=== PATIENT | female | born 1970 | race Caucasian/White ===

== ENCOUNTER 2022-12-25 17:30 | Emergency (ER) | payer BC, SELFPAY ==
[2022-12-25] VITALS (57 sets, daily range): BP systolic 113–143; BP diastolic 46–100; PULSE 48–67; RESP 12–27; TEMP 36.8; O2SAT 95–100
--- NOTE | 2022-12-25 17:30 | RT.EKG_ITS ---
APPROVED REPORT Exam: Resting ECG Reason for Exam: chest pain Patient Location: E HR:65 bpm ECG Measurements Heart Rate 65 AXIS [place] 137 P 37 QRSd 101 QRS 46 QT 408 T 56 QTc 424 Conclusion Sinus rhythm...normal P axis, V-rate 60- 99. Sinus. Normal axis. No STEMI. I have reviewed and interpreted ECG and agree with software generated interpretation.
--- NOTE | 2022-12-25 17:45 | DI.RAD_ITS ---
Exam(s) XR PORTABLE CHEST AP EXAM: XR PORTABLE CHEST AP CLINICAL HISTORY: chest pain. TECHNIQUE: 2D digital imaging was performed. COMPARISON: No exams were available for comparison FINDINGS: Single AP portable view. Heart size is upper normal. The mediastinum is not widened. Lungs are clear. No infiltrates nor obvious pleural effusions. IMPRESSION: No acute pulmonary findings on this single AP portable view of the chest. DATA REPOSITORY: RADIATION DOSE DELIVERED:
[2022-12-25] MEDS: Aspirin 81 MG CHEW (17:50)
[2022-12-25] MEDS: nitroGLYcerin 0.4 MG TAB ×2 (17:50→19:13)
--- NOTE | 2022-12-25 17:57 | W.ED.GENAD ---
Discharge Plan Disposition Patient Disposition: Home Condition: Stable Discharge Details Clinical Impression: Chest pain Primary Care Provider: Natalia Rod ED Provider: Dorene Covington Home Meds and New Rx's Prescriptions: Continued diphenhydramine HCl [Benadryl] 25 mg capsule 25 mg PO QHS PRN (Reason: sleep) trazodone 100 mg tablet 100 mg PO DAILY lorazepam [Ativan] 0.5 mg tablet 0.5 mg PO Q8H PRN Discharge Instructions Instructions: Chest Pain (ED) Additional Instructions: please call primary care provider office first thing in am to schedule further outpatient cardiac evaluation. return sooner for new or worsening symptoms Stand Alone Forms: Work Release Referrals: Natalia Rod NP [Primary Care Provider] - Discharge Data Discharge Date/Time-TO BE ENTERED AT DEPARTURE: 12/25/22 23:13 Medical Decision Making <Dorene Covington NP - Last Filed: 12/26/22 15:07> EKG with no acute ST segment changes. Her history is concerning for ACS. Doubt aortic dissection but chest x-ray is pending. She will be given 324 mg of aspirin to chew and 1 SL nitro. While sitting in department she does report pain now in between her shoulder blades. CTA of the thorax was ordered and showed no evidence of pulmonary embolism or aortic dissection no acute vascular abnormalities. She did have some nonemergent findings that were detailed in the report as should be followed up by her primary care provider. The she does not have symptoms of venous thoracic outlet syndrome with no pain in her right neck and no vascular abnormalities ATs or deficiencies noted. She was held for a 4-hour troponin which was also negative. She did have some relief from the nitroglycerin so a GI cocktail was provided but she states she did not get any significant relief from that. She has remained hemodynamically stable. I did discuss further cardiac evaluation with stress testing and she wishes to pursue that as an outpatient. She was advised to return sooner for new or worsening symptoms. <Smita Dorman DO - Last Filed: 01/02/23 00:31> EKG with no acute ST segment changes. Her history is concerning for ACS. Doubt aortic dissection but chest x-ray is pending. She will be given 324 mg of aspirin to chew and 1 SL nitro. While sitting in department she does report pain now in between her shoulder blades. CTA of the thorax was ordered and showed no evidence of pulmonary embolism or aortic dissection no acute vascular abnormalities. She did have some nonemergent findings that were detailed in the report as should be followed up by her primary care provider. The she does not have symptoms of venous thoracic outlet syndrome with no pain in her right neck and no vascular abnormalities ATs or deficiencies noted. She was held for a 4-hour troponin which was also negative. She did have some relief from the nitroglycerin so a GI cocktail was provided but she states she did not get any significant relief from that. She has remained hemodynamically stable. I did discuss further cardiac evaluation with stress testing and she wishes to pursue that as an outpatient. She was advised to return sooner for new or worsening symptoms. Attending physician note: Patient not seen or examined by me but I was available for consult if needed. Smita Dorman DO HPI <Dorene Covington NP - Last Filed: 12/26/22 15:07> General Mode of arrival: ambulatory. Date/Time Provider Initiated Documentation: 12/25/22 17:38. Limitations to Documentation: no limitations. Information obtained by: patient. HPI Narrative: Onset 30 minutes prior to arrival while at work of substernal chest pain. Initially she thought it was GI but then noted tingling and pain on the left side of her jaw she said then she noticed discomfort on the right side of her jaw as well. 911 was called. On evaluation her symptoms were resolving vital signs stable so she opted to come by private vehicle. On arrival she is still having some mild substernal chest discomfort but the jaw pain has subsided. She denies any cough shortness of breath nausea vomiting diaphoresis denies any similar history. She has no personal cardiac history. She states her mother had a heart attack at 55. Related Data Home Medications Medication Instructions Recorded Confirmed lorazepam 0.5 mg tablet (Ativan) 0.5 mg PO Q8H PRN 10/19/22 12/08/22 trazodone 100 mg tablet 100 mg PO DAILY 10/19/22 12/08/22 diphenhydramine HCl 25 mg capsule 25 mg PO QHS PRN sleep 12/08/22 12/08/22 (Benadryl) Allergies Allergy/AdvReac Type Severity Reaction Status Date / Time Sulfamethizole Allergy Unknown Uncoded 12/07/22 12:37 General Stated Complaint: Chest Pain PRICE: 2 Review of Systems <Dorene Covington NP - Last Filed: 12/26/22 15:07> All systems reviewed & are unremarkable except as noted in HPI and below Constitutional Constitutional: Reports system reviewed and no additional complaints, except as documented Cardiovascular Cardiovascular: Reports chest pain, Denies rapid heart rate, Denies irregular heart rhythm and Denies leg edema Comments: no aggravating or alleviating factors identified. PFSH <Dorene Covington NP - Last Filed: 12/26/22 15:07> All Active Problems (Updated 12/25/22 @ 22:51 by Dorene Covington NP) Chest pain (Acute) SLE (systemic lupus erythematosus) (Chronic ~2014) Dermatomyositis (Chronic ~2014) Generalized anxiety disorder (Chronic) Major depressive disorder, recurrent (Chronic) Ocular migraine (Chronic) Insomnia (Chronic) Medical History (Updated 12/25/22 @ 22:51 by Dorene Covington NP) Multiple myeloma (~2014) S/p autologous stem cell transplant Surgical History (Updated 12/08/22 @ 09:26 by Natalia Rod NP) History of partial hysterectomy (~2012) For uterine fibroids, ovaries remain Hx of autologous stem cell transplant S/P carpal tunnel release Family History Mother , 73 Heart disease Hyperlipidemia Stroke Father , 65 Depression Sister No problems noted. Sister No problems noted. Son No problems noted. Son No problems noted. Daughter No problems noted. Social History Smoking/Tobacco Use Status: Current-Occasional Tobacco Type: cigarettes and e-cigarettes Quit status: has quit before Second Hand Exposure: Yes Smoking risk assessment performed?: Yes Alcohol Intake: current Alcohol Intake frequency: holidays/special occasions only Alcohol type: hard liquor Drug use: Never Substance use type: does not use Household members: spouse and other Details: Father in law Housing: house Communication Needs: Corrective Lenses Do you need help understanding health information?: Never Pets and animals: No Sexually active: Yes Do you think of yourself as: straight/heterosexual Current gender identity: female What is your relationship status?: How often do you talk on the phone with friends or family?: three or more times per week How often do you get together with friends or relatives?: twice per week How often do you attend judaism or jewish services?: 1-3 times per year Do you belong to any clubs or organized social groups?: no Panel score (0-1 are the most socially isolated patients): 2 What type of physical activity do you participate in: weight lifting Duration: 60-90 minutes/day Frequency: 5-6 times per week Lynnette/Confucianist: L[employer]-Day Special lynnette needs: No Helmet use: Yes Helmet use: always 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 Do you feel safe at home: Yes Do you feel safe in your relationship?: Yes Exam <Dorene Covington NP - Last Filed: 12/26/22 15:07> Const General: cooperative, healthy appearing, comfortable and no acute distress Nutritional Appearance: average body habitus Orientation: alert, awake and oriented x3 HENMT Head: normal to inspection and normocephalic Mouth: oral mucosae normal Neck Neck: full ROM and no JVD Chest Chest: normal inspection of the chest Resp Effort & Inspection: normal respiratory effort Auscultation: clear to auscultation bilaterally Cardio Rate: regular rate Rhythm: regular rhythm Heart Sounds: no murmurs GI Inspection: normal to inspection Palpation: soft Skin General skin exam: no rashes or lesions noted (She is pink warm dry and well perfused) Neuro General: patient alert, patient awake and patient oriented x3 Extrem General: normal to inspection Course <Dorene Covington NP - Last Filed: 12/26/22 15:07> Vital Signs Vital signs: Vital Signs Temperature 36.8 C 12/25/22 17:45 Pulse 65 12/25/22 17:45 Respiratory Rate 18 12/25/22 17:45 Blood Pressure 141/87 H 12/25/22 17:45 Pulse Oximetry 100 12/25/22 17:45 Temperature 36.8 C 12/25/22 17:45 Temperature Source Oral 12/25/22 17:45 Pulse 65 12/25/22 17:45 Respiratory Rate 18 12/25/22 17:45 Respiratory Effort Normal 12/25/22 17:51 Blood Pressure 141/87 H 12/25/22 17:45 Blood Pressure Position Supine 12/25/22 17:45 Pulse Oximetry 100 12/25/22 17:45 Oxygen Delivery Method Room Air 12/25/22 17:45 Oxygen Flow Rate 0 12/25/22 17:45 Pain Level 5 12/25/22 17:45
[2022-12-25 18:05] LABS: Abs Immature Grans 0.02 10^3/uL (0.0-0.06); Absolute Basophil Count 0.05 10^3/uL (0.0-0.2); Absolute Eosinophil Count 0.12 10^3/uL (0.0-0.7); Absolute Lymphocyte Count 2.33 10^3/uL (1.2-3.4); Absolute Monocyte Count 0.34 10^3/uL (0.1-0.8); Absolute Neutrophil Count 3.36 10^3/uL (1.2-6.7); Basophils % 0.8; Eosinophils % 1.9; HCT 37.3 % (36.0-46.0); HGB 12.3 g/dL (11.2-15.7); Immature Grans % 0.3; Lymphocytes % 37.5; MCH 30.8 pg (27.0-33.0); MCV 94 fL (80-95); MPV 9.3 fL (8.0-11.0); Monocytes % 5.5; Platelet Count 204 10^3/uL (130-400); RBC 3.99 10^6/uL (3.93-5.22); RDW 12.3 % (11.7-14.6); RDW-SD 42.4 fL; WBC 6.22 10^3/uL (4.4-10.8)
[2022-12-25 18:19] LABS: PTT Activated 33.9 sec (21.5-31.9); Prothrombin Time 10.3 sec (9.3-11.0)
[2022-12-25 18:28] LABS: ALT 20 U/L (14-59); AST 10 U/L (15-37); Alkaline Phosphatase 98 U/L (46-116); Anion Gap 9.1 mmol/L (3-11); BUN 14 mg/dL (7-18); Bilirubin, Total 0.3 mg/dL (0.2-1.0); CO2 26.9 mmol/L (21.0-32.0); CREATININE 0.8 mg/dL (0.55-1.02); Chloride 106 mmol/L (98-107); Glucose 94 mg/dL (74-106); Magnesium 1.7 mg/dL (1.8-2.4); NT-proBNP 129 pg/mL (<300); Potassium 3.8 mmol/L (3.5-5.1); Sodium 142 mmol/L (136-145); Total Protein 6.7 g/dL (6.4-8.2); Troponin I < 50 ng/L (<or=60)
--- NOTE | 2022-12-25 18:43 | DI.VRAD_ITS ---
PROCEDURE INFORMATION: Exam: XR Chest Exam date and time: 12/25/2022 5:55 PM Age: 52 years old Clinical indication: Pain; Chest pressure TECHNIQUE: Imaging protocol: Radiologic exam of the chest. Views: 1 view. COMPARISON: No relevant prior studies available. FINDINGS: Lungs: Normal pulmonary expansion. Pulmonary vasculature grossly normal. No gross pulmonary infiltrates or edema pattern. Pleural spaces: No pleural effusion. No pneumothorax. Heart/Mediastinum: Heart size normal. No tracheal/mediastinal shift. Bones/joints: Right-sided C7 cervical rib noted. No acute osseous abnormalities are identified. IMPRESSION: 1. No acute thoracic process. 2. Right-sided C7 cervical rib noted. If there is clinical concern for chronic right-sided thoracic outlet syndrome, nonemergent CT angiography may be helpful. Dictated and Authenticated by: Don Hwang MD. Ordering:MODESTO Catherine MD
--- NOTE | 2022-12-25 19:00 | DI.CT_ITS ---
Exam(s) CT THORAX CTA EXAM: CT THORAX CTA CLINICAL HISTORY: pain between shoulder blades. TECHNIQUE: Imaging Protocol: CT angiography of the chest was performed using pulmonary embolus ada col. Multi planar reconstructions were performed. CONTRAST MATERIAL: Intravenous: Omnipaque 350 Contrast volume: 100 cc COMPARISON: No exams were available for comparison FINDINGS: CHEST: THORACIC AORTA: Thoracic aorta is not enlarged and there is no evidence of aortic dissection. Aortic arch anatomy is conventional. The included uppermost abdominal aorta at the level of the celiac and SMA and renal artery takeoff points is also nonaneurysmal. PULMONARY ARTERIES: There are no intraluminal filling defects to suggest acute pulmonary emboli. LUNGS: There are no infiltrates nor evidence of pulmonary infarction.. No significant infiltrates. N o pneumothorax. No pleural effusions. Mild atelectasis in the posterior basal segment of the right lower lobe. MEDIASTINUM: There is no hilar nor mediastinal adenopathy. CARDIAC: Heart size is upper normal. There is no pericardial effusion.Caliber of the thoracic aorta is within normal limits. No dissection. There is some reflux of contrast into the intrahepatic IVC. However, there is no evidence of shift of the interventricular septum. PARTIALLY VISUALIZED UPPERMOST ABDOMEN: No obvious findings OSSEOUS: Slight loss of height of inferior endplate T6, age indeterminate. No significant osseous le sions.. IMPRESSION: 1. No evidence of acute pulmonary emboli. No evidence of pulmonary infarction.No evidence of aortic dissection nor pericardial effusion. Heart size normal. 2. No confluent infiltrates. No pleural effusions. No intrathoracic adenopathy. RADIATION DOSE DELIVERED: 404.33mGy.cm Total DLP DATA REPOSITORY: All CT scans at this facility are submitted to the National Radiology Data Registry (NRDR) Dose Index Registry (DIR) with the [employer] (A[employer]). RADIATION OPTIMIZATION: All CT scans at this facility use at least one of these dose optimization te chniques: automated exposure control; mA and/or kV adjustment per patient size (includes targeted exa ms where dose is matched to clinical indication); or iterative reconstruction.
[2022-12-25] MEDS: Normal Saline Flush 10 ML SYR IVP (19:43)
[2022-12-25] MEDS: Omnipaque 350 MG/ML 100 ML BTL IJ (19:43)
[2022-12-25] MEDS: Normal Saline - Diluent 50 ML VIAL IJ (19:44)
--- NOTE | 2022-12-25 19:55 | DI.VRAD_ITS ---
PROCEDURE INFORMATION: Exam: CTA Chest With Contrast Exam date and time: 12/25/2022 7:30 PM Age: 52 years old Clinical indication: Sternal or substernal pain and other: Between shoulder blades; Prior surgery; Surgery date: 6+ months; Surgery type: HX of ports placed for CA treatment; Patient HX: Pain between shoulder blades TECHNIQUE: Imaging protocol: Computed tomographic angiography of the chest with contrast. 3D rendering (Not supervised by radiologist): MIP and/or 3D reconstructed images were created by the technologist. Radiation optimization: All CT scans at this facility use at least one of these dose optimization techniques: automated exposure control; mA and/or kV adjustment per patient size (includes targeted exams where dose is matched to clinical indication); or iterative reconstruction. Contrast material: OMNIPAQUE 350; Contrast volume: 100 ml; Contrast route: INTRAVENOUS (IV); COMPARISON: XR PORTABLE CHEST AP 12/25/2022 5:55 PM FINDINGS: Pulmonary arteries: The pulmonary arteries enhance appropriately with no evidence of pulmonary embolism. Aorta: Mild aortic ectasia/tortuosity. No aortic aneurysm or dissection. No mediastinal hematoma. Veins: Circumaortic left renal vein configuration noted. Thyroid: There is a 10 mm peripherally calcified nodule in the left thyroid lobe. No further assessment is required based on current consensus criteria. Lungs: Question mild bilateral bronchial wall thickening suspicious for a mild element of bronchitis or bronchial edema, with no evidence of bronchiectasis or bronchial occlusions. No gross pulmonary infiltrates or edema pattern. Scattered very small ill-defined bilateral upper lobe centrilobular lung nodules are present measuring 1-2 mm in size. These are usually related to bronchiolitis and may be due to atypical infection or subacute hypersensitivity pneumonitis. Other etiologies such as obliterative bronchiolitis, respiratory bronchiolitis interstitial lung disease (RB-ILD), or vasculitis can produce this appearance as well. No pulmonary mass lesions are identified. Pleural spaces: No pleural effusion. No pneumothorax. Mild bilateral apical pleural/parenchymal scarring. Heart: Heart size normal. Minimal coronary artery calcification. No pericardial effusion. Mediastinal space: The esophagus is largely contracted but demonstrates no gross abnormality. Lymph nodes: No supraclavicular or axillary adenopathy. No mediastinal or hilar adenopathy. Intraperitoneal space: Visualized upper abdominal structures are unremarkable. Bones/joints: No acute osseous abnormalities are identified. Right C7 cervical rib noted. With arms overhead positioning this causes minor extrinsic mass effect on the right subclavian artery without associated stenosis or aneurysm/pseudoaneurysm. Venous assessment is limited on this arterial phase exam. Soft tissues: The soft tissues of the chest wall demonstrate no acute abnormality. IMPRESSION: 1. No evidence of pulmonary embolism or aortic dissection. No acute vascular abnormalities. 2. Slight bronchial wall thickening bilaterally with ill-defined centrilobular micronodular pattern in the upper lobes, with primary differential considerations being bronchiolitis from atypical infection or subacute hypersensitivity pneumonitis. Please see discussion above for additional differential considerations. No zackary pulmonary infiltrates. 3. Right C7 cervical rib produces mild deviation of the right subclavian artery without arterial stenosis, dissection, or aneurysm/pseudoaneurysm. If there is clinical suspicion for venous thoracic outlet syndrome, consider nonemergent CT venography with venous phase imaging and arms up/down positioning. 4. Additional nonemergent findings detailed above. Dictated and Authenticated by: Don Hwang MD. Ordering:MODESTO Catherine MD
--- NOTE | 2022-12-25 20:45 | RT.EKG_ITS ---
APPROVED REPORT Exam: Resting ECG Reason for Exam: chest pain Patient Location: E HR:54 bpm ECG Measurements Heart Rate 54 AXIS [place] 164 P 21 QRSd 96 QRS 58 QT 452 T 56 QTc 428 Conclusion Sinus bradycardia...rate< 60. Sinus. Normal axis. No STEMI. I have reviewed and interpreted ECG and agree with software generated interpretation.
[2022-12-25 21:23] LABS: Troponin I < 50 ng/L (<or=60)
[2022-12-25] MEDS: Lidocaine 2% Viscous 15 ML CUP PO (21:43)
--- NOTE | 2022-12-28 07:49 | NUR.NOTE ---
Nursing Note: Accessed pt chart to determine if there is an outstanding EKG order. EKG needs to be read.
--- NOTE | 2023-01-01 08:11 | NUR.NOTE ---
Nursing Note:Accessed chart to determine orders for EKG and to determine whether or not one needs to be cancelled.
== END 2022-12-25 23:13 | disposition home or self-care (01) ==
PROVIDERS: Emergency Provider Nurse Practitioner Acute Care; PCP Nurse Practitioner Family
DX: R07.2 Precordial pain (principal)
CPT/HCPCS: 36415; 71275; 80053; 93005; 99285; 71045; 83735; 83880; 84484; 85025; 85610; 85730; 93010; J3490

== ENCOUNTER 2023-12-12 14:11 | Outpatient (CLI) | payer OTHER, SELFPAY ==
[2023-12-12 14:03] LABS: Hemoglobin A1C 5.5 % (<5.7)
[2023-12-12 14:12] LABS: Calculated LDL 175 mg/dL (<100); Cholesterol 269 mg/dL (<200); HDL Cholesterol 67 mg/dL (40-60); Triglyceride 135 mg/dL (<150)
[2023-12-14 12:32] LABS: TB Interpretation Negative (Negative); TB2 Ag minus Nil 0.02 IU/mL
== END 2023-12-12 14:12 | disposition home or self-care (01) ==
LOC: LBO 14:11
PROVIDERS: PCP Nurse Practitioner Family; Visit Provider Nurse Practitioner Family
DX: C90.00 Multiple myeloma not having achieved remission (principal); M32.9 Systemic lupus erythematosus, unspecified; R07.9 Chest pain, unspecified; F41.8 Other specified anxiety disorders; Z79.899 Other long term (current) drug therapy
CPT/HCPCS: 36415; 80061; 83036; 86480

== ENCOUNTER → 2024-03-12 04:47 | Outpatient (CLI) | payer OTHER, SELFPAY ==
--- NOTE | 2024-03-12 07:15 | DI.MAMMO_ITS ---
Exam(s) MAMMO SCREENING EXAM: MAMMO SCREENING CLINICAL HISTORY: screening,z12.39. TECHNIQUE: Bilateral full field digital CC and MLO mammographic images were obtained with 3D tomosyn thesis and utilizing computer aided detection (CAD). COMPARISON: Prior mammograms were reviewed. FINDINGS: There has been no significant change in the appearance and distribution of the fibroglandular tissue. Small benign-appearing nodule laterally in left breast is unchanged from prior mammograms probably a benign lymph node. There are no new spiculated masses nor malignant appearing microcalcification groups. There is no significant architectural distortion nor skin thickening-retraction. IMPRESSION: No radiographic evidence of malignancy. BI-RADS Category 1 - Negative Breast Density - Category B - Scattered areas of fibroglandular density Breast density Category C or D implies that the patient has dense breast tissue. Dense breast tissue can make it harder to find cancer on a mammogram. Dense breast tissue is also associated with an incr eased risk of breast cancer. This information about the result of the mammogram report was provided to the patient to raise their awareness. Use this report when you speak with the patient about their risks for breast cancer, which includes their family history. At that time, you may recommend additional screening tests (Ultrasoun d or MRI) as these tests may add significant information. A negative radiographic report should not delay biopsy if a dominant or clinically suspicious mass is present. Up to ten percent of cancers are not identified on mammography. A negative report may reinforce clinical impression. Adenosis and dense breasts may obscure an underlying neoplasm. False positive reports average 6 to 10%. Patient will receive a letter notifying them of these results.
== END ==
PROVIDERS: PCP Nurse Practitioner Family; Visit Provider Nurse Practitioner Family
DX: Z12.31 Encounter for screening mammogram for malignant neoplasm of breast (principal)
CPT/HCPCS: 77063; 77067

== ENCOUNTER 2024-03-26 06:18 | Day surgery (SDC) | payer OTHER, SELFPAY ==
[2024-03-26 06:20] VITALS: BP 113/75; PULSE 75; RESP 18; TEMP 36.4; O2SAT 96
--- NOTE | 2024-03-26 06:43 | ANES.PREOP_ITS ---
General Info Date of Service Date Performed: 03/26/24 Height: 5 ft 2 in Weight: 65 kg Body Mass Index (BMI): 26.2 Surgical Procedure: Operation Date: 03/26/24 07:35 Proposed Procedure Side Surgeon p Colonoscopy Sandeep Hanson MD Meds Allergies and Home Medications Allergies Allergy/AdvReac Type Severity Reaction Status Date / Time Sulfa (Sulfonamide Allergy Skin Rash Verified 03/26/24 06:36 Antibiotics) Home Medication Medication Instructions Recorded diphenhydramine HCl 25 mg capsule 25 mg PO QHS PRN sleep 12/08/22 (Benadryl) lorazepam 0.5 mg tablet (Ativan) 0.5 mg PO Q8H PRN panic attacks 02/11/24 #20 tabs trazodone 100 mg tablet 100 mg PO DAILY #90 tabs 02/11/24 bisacodyl 5 mg tablet,delayed 5 mg PO ONCE Colonoscopy Bowel 02/27/24 release Prep #4 tabs polyethylene glycol 3350 17 238 g PO ONCE #238 grams 02/27/24 gram/dose oral powder Current Visit Medications: Current Medications Generic Name Dose Route Start Last Admin Trade Name Freq PRN Reason Stop Dose Admin Ringer's Solution 1,000 mls @ 80 mls/hr 03/26/24 06:00 IV 03/26/24 23:59 INFUSION ADRIANA IV Miscellaneous Supplies 1 each 03/26/24 06:00 Iv Access IV 03/26/24 23:59 DIRECTED ADRIANA Sodium Chloride 0 ml 03/26/24 06:00 Normal Saline Flush 10 Ml Syr IV 03/26/24 23:59 PRN PRN Sodium Chloride 0 ml 03/26/24 06:00 Normal Saline 10 Ml Vial IJ 03/26/24 23:59 DIRECTED PRN Sterile Water 0 ml 03/26/24 06:00 Water,Injection,Sterile 10 Ml Vial IJ 03/26/24 23:59 DIRECTED PRN PFSH Active Problems Active Problems: Problem Status Onset Code Back abscess L02.212 History of multiple myeloma Z85.79 SLE (systemic lupus erythematosus) ~2014 M32.9 Generalized anxiety disorder F41.1 Major depressive disorder, recurrent F33.9 Ocular migraine G43.109 Insomnia G47.00 Medical History Medical History Dermatomyositis (~2014) Multiple myeloma (~2014) S/p autologous stem cell transplant Surgical History Surgical History Hx of autologous stem cell transplant S/P carpal tunnel release History of partial hysterectomy (~2012) For uterine fibroids, ovaries remain Tobacco Smoking/Tobacco Use Status: Current-Occasional Tobacco Type: cigars Passive smoking exposure: Yes Second hand exposure: No Alcohol Alcohol Intake: former Substance Use Substance use: Never Substance use type: does not use Vital Signs and Lab Results Vital Signs Most Recent Vital Signs in EMR: Most Recent Vital Signs Temp Pulse Resp BP Pulse Ox 36.4 C L 75 18 113/75 96 03/26/24 06:20 03/26/24 06:20 03/26/24 06:20 03/26/24 06:20 03/26/24 06:20 Lab Results Blood Type / Crossmatch: No Data to Display Complete Blood Count: No Data to Display Complete Metabolic Panel: No Data to Display Liver Function Panel: No Data to Display Coagulation Panel: No Data to Display Cardiac Panel: No Data to Display Arterial Blood Gas: No Data to Display Venous Blood Gas: No Data to Display Pancreas Panel: No Data to Display Thyroid Panel: No Data to Display Infectious Disease: No Data to Display Blood Cultures: No Data to Display Toxicology Panel: No Data to Display Imaging and Studies Imaging and Studies Study information below may be from another EMR and interpreted by another provider. Please see original notes in EMR for more complete details. EKG Summary: EKG PATIENT NAME: Judith Rivera UNIT #: [id number] ORDERING PROVIDER: Dorene Covington NP PRIMARY CARE PROVIDER: HECTOR NICOLE NP DATE/TIME OF SERVICE: 12/25/222058 : 1970 PERFORMING LOCATION: ER APPROVED REPORT Exam: Resting ECG Reason for Exam: chest pain Patient Location: E HR:54 bpm ECG Measurements Heart Rate 54 AXIS NV 164 P 21 QRSd 96 QRS 58 QT 452 T56 QTc 428 Conclusion Sinus bradycardia...rate< 60. Sinus. Normal axis. No STEMI. I have reviewed and interpreted ECG and agree with software generated interpretation. <Electronically signed by BERYL MCINTOSH DO in [facility]> E-Sign Date: 12/25/22 E-Sign Time: 2326 ADDENDUM APPROVED REPORT Exam: Resting ECG Reason for Exam: chest pain Patient Location: E HR:54 bpm ECG Measurements Heart Rate 54 AXIS NV 164 P 21 QRSd 96 QRS 58 QT 452 T56 QTc 428 Conclusion Sinus bradycardia...rate< 60. Sinus. Normal axis. No STEMI. I have reviewed and interpreted ECG and agree with software generated interpretation. I have reviewed and I agree with the emergency room physician's ECG interpretation. Electronically signed by: <Electronically signed by Eliza Miller M.D. in [facility]> 12/26/22 0740 Cosigned by: Anesthesia Assessment and Plan Anesthesia History Personal History: No History of Anesthesia Complications Family History: No Family History of Anesthesia Complications Exercise Tolerance Exercise Tolerance: Metabolic Equivalents>4 Pertinent Negatives Pertinent Negatives: No Symptoms of GERD, No Major Cardiovascular Symptoms or Complaints, No Major Pulmonary Symptoms or Complaints and No History of CVA/TIA Cardiac & Pulmonary Exam Cardiac Exam: Normal S1/S2 Heart Sounds Pulmonary Exam: Clear Bilateral Breath Sounds Implantable Cardiac Device Does patient have a Pacemaker or an ICD?: No Airway Exam Known Difficult Airway: No Mallampati Class: 2 Mouth Opening: Normal (> 3cm) Thyromental Distance: Greater than 3 cm Neck Range of Motion: Full ROM Neck Circumference: Normal Teeth Condition: Normal Dentition ASA Classification ASA Score: ASA 2 Emergency Case?: No NPO Status NPO Status: NPO Clears >2 hours, Solids >8 hours Anesthesia Plan Resuscitation Status: Full Code Anesthesia Technique: General Anesthesia Airway Planned: Natural Airway Monitors Used: Standard Monitors
[2024-03-26] MEDS: Lactated Ringers 1,000 ML 80 ML IV (06:45)
[2024-03-26 07:05] VITALS: BMI 26.2
[2024-03-26 08:01] VITALS: BP 105/71; PULSE 65; RESP 16; TEMP 36.6; O2SAT 100
--- NOTE | 2024-03-26 08:08 | W.COLOREPORT ---
Date of service: 03/26/24 Time of Service: 08:09 Colonoscopy Report Procedure Description: PROCEDURES PERFORMED: 1. Colonoscopy PREOPERATIVE DIAGNOSIS: Surveillance colonoscopy POSTOPERATIVE DIAGNOSIS: Mild sigmoid diverticulosis, mild grade 1 internal hemorrhoids SURGEON: Florence Hanson MD INDICATION FOR PROCEDURE: the patient is a 53-year-old woman who has never had a colonoscopy before. She has no family history of colon cancer. She has no symptoms. FINDINGS: Normal terminal ileum. No polyps. Mild diverticular disease in the sigmoid colon only. Grade 1 internal hemorrhoids. SURVEILLANCE interval/FOLLOW-UP: 10 years SPECIMENS: None EBL: Minimal COMPLICATIONS: None QUALITY of prep: Excellent Procedure in detail: The patient gave written consent and was in agreement with the indications, the potential risks as well as the benefits of the procedure. They were taken to the endoscopy suite and laid in the left lateral decubitus position. A timeout was performed and anesthesia was administered which was tolerated well. I started the procedure. Digital rectal and visual examination was performed and grossly within normal limits. A well-lubricated flexible colonoscope was then introduced and passed without any notable difficulty all the way to the cecum identified by the ileocecal valve and the appendiceal orifice. The terminal ileum was intubated and looked normal. The scope was then slowly withdrawn with the above-noted findings. The patient tolerated the procedure well and was taken to the PACU in hemodynamically stable condition.
--- NOTE | 2024-03-26 08:10 | W.PM.DSUDISC ---
Date of service: 03/26/24 Time of Service: 08:10 Discharge Plan Disposition Patient Disposition: Home Condition: Good Discharge Details Attending Provider: Sandeep Hanson Primary Care Provider: Natalia Rod Home Meds and New Rx's Prescriptions: No Action bisacodyl 5 mg tablet,delayed release (DR/EC) 5 mg PO ONCE Qty: 4 0RF Rx Instructions: Per Colonoscopy bowel prep instructions polyethylene glycol 3350 17 gram/dose powder 238 g PO ONCE Qty: 238 0RF Rx Instructions: For Colonoscopy bowel prep, as directed by office diphenhydramine HCl [Benadryl] 25 mg capsule 25 mg PO QHS PRN (Reason: sleep) trazodone 100 mg tablet 100 mg PO DAILY Qty: 90 3RF lorazepam [Ativan] 0.5 mg tablet 0.5 mg PO Q8H PRN (Reason: panic attacks) Qty: 20 0RF Discharge Instructions Additional Instructions: FINDINGS: No polyps or anything concerning for cancer was found. You have some mild diverticular changes in your colon. This is extremely common, benign and nothing needs to be done about it. Repeat another colonoscopy in 10 years. Stand Alone Forms: Anesthesia Discharge InstTana, Mike Riddle (DSU) Activity:: Activity as Tolerated Diet:: As Tolerated
[2024-03-26 08:30] VITALS: BP 125/77; PULSE 53; RESP 16; TEMP 36.4; O2SAT 100
--- NOTE | 2024-03-26 08:43 | W.ANESPOSTOP ---
Postoperative Evaluation Date, Time and Location Date Performed: 03/26/24 Time Performed: :05 Patient Location: Day Surgery Unit Vital Signs Most Recent Imported Vital Signs: Most Recent Vital Signs Temp Pulse Resp BP Pulse Ox 36.4 C L 53 L 16 125/77 100 03/26/24 08:30 03/26/24 08:30 03/26/24 08:30 03/26/24 08:30 03/26/24 08:30 Pain Score Most Recent Pain Score: Most Recent Pain Score Pain Level 0 03/26/24 08:30 Assessment Mental Status: Awake (Alert & Oriented to Patient Baseline) Airway and Respiratory Function: Patent airway with normal (patient baseline) respiratory exam Cardiovascular Function: Hemodynamically Stable Hydration Status: Adequately Hydrated Nausea & Vomiting: No Nausea or Vomiting Pain: Pt. Denies Any Pain Peripheral Nerve Block: Patient did not receive a nerve block
== END 2024-03-26 08:34 | disposition home or self-care (01) ==
PROVIDERS: PCP Nurse Practitioner Family; Visit Provider Student in an Organized Health Care Education/Training Program
PROC: 0DJD8ZZ Inspection of Lower Intestinal Tract, Via Natural or Artificial Opening Endoscopic (ICD-10-PCS; CPT 45378; principal; 2024-03-26 07:30)
DX: Z12.11 Encounter for screening for malignant neoplasm of colon (principal); M32.9 Systemic lupus erythematosus, unspecified; K57.30 Diverticulosis of large intestine without perforation or abscess without bleeding; K64.0 First degree hemorrhoids
CPT/HCPCS: 45378; 00123; J2704

== ENCOUNTER 2024-09-29 20:21 | Emergency (ER) | payer OTHER, SELFPAY ==
[2024-09-29 20:25] VITALS: BP 118/75; PULSE 80; RESP 15; TEMP 36.7; O2SAT 97
[2024-09-29] MEDS: Acetaminophen 500 MG TAB 1000 MG PO (20:41)
--- NOTE | 2024-09-29 20:42 | W.ED.GENAD ---
Discharge Plan Disposition Patient Disposition: Home Condition: Stable Discharge Details Clinical Impression: Back contusion, Contusion of arm, right, Right wrist sprain Primary Care Provider: Natalia Rod ED Provider: Chris Romero Home Meds and New Rx's Prescriptions: Continued diphenhydramine HCl [Benadryl] 25 mg capsule 25 mg PO QHS PRN (Reason: sleep) trazodone 100 mg tablet 100 mg PO DAILY Qty: 90 3RF lorazepam [Ativan] 0.5 mg tablet 0.5 mg PO Q8H PRN (Reason: panic attacks) Qty: 20 0RF Discharge Instructions Additional Instructions: I did not see any broken bones on your x-rays. If the radiologist sees anything I will give you a call. Follow-up with your primary care provider especially if not improving within a week If you feel more ill or have severe worsening pain or new pain such as abdominal pain return to the emergency department for reevaluation. You can take 600 mg of ibuprofen and 1000 mg of acetaminophen every 6 hours as needed. Stand Alone Forms: Work Release HPI General Mode of arrival: ambulatory. Date/Time Provider Initiated Documentation: 09/29/24 20:22. Limitations to Documentation: no limitations. Information obtained by: patient. History of Present Illness 53 year old F presents to the emergency department with the chief complaint of right arm pain, described as moderate, Quality is described as aching, and is localized to the right and upper extremity. Patient reports no radiation. Patient started experiencing this minute(s) (1.5) and it has been constant. No relieving factors improve symptom(s), No exacerbating factors reported . Patient notes other (upper back pain). Patient did receive the following treatments prior to arrival, none Related Data Home Medications ?Medication ?Instructions ?Recorded ?Confirmed diphenhydramine HCl 25 mg capsule 25 mg PO QHS PRN sleep 12/08/22 09/29/24 (Benadryl) trazodone 100 mg tablet 100 mg PO DAILY #90 tabs 05/14/24 09/29/24 lorazepam 0.5 mg tablet (Ativan) 0.5 mg PO Q8H PRN panic attacks 08/18/24 09/29/24 #20 tabs Previous Rx's ?Medication ?Instructions ?Recorded trazodone 100 mg tablet 100 mg PO DAILY #90 tabs 05/14/24 lorazepam 0.5 mg tablet (Ativan) 0.5 mg PO Q8H PRN panic attacks 08/18/24 #20 tabs Allergies Allergy/AdvReac Type Severity Reaction Status Date / Time Sulfa (Sulfonamide Allergy Skin Rash Verified 09/29/24 20:30 Antibiotics) General Stated Complaint: Orthopedic PRICE: 4 Review of Systems All systems reviewed & are unremarkable except as noted in HPI and below Cardiovascular Cardiovascular: Denies chest pain and Denies dyspnea Respiratory Respiratory: Denies cough and Denies dyspnea Gastrointestinal Gastrointestinal: Denies abdominal pain, Denies nausea and Denies vomiting Psychiatric Psychiatric: Denies depression Exam Const General: no acute distress Orientation: alert HENMT Head: normal to inspection Ears: external ears normal General nose exam: external nose normal Mouth: moist mucous membranes Eyes General: appearance normal, both eyes and all related structures Neck Neck: normal visual inspection Resp Effort & Inspection: normal respiratory effort and able to speak in complete sentences Cardio Rate: regular rate Back/Spine/Pelvis Back: no CVA tenderness Thoracic/Lumbar Spine: thoracic spinal tenderness and No lumbar spinal tenderness Skin General skin exam: no rashes or lesions noted Neuro General: patient alert and patient oriented x3 Extrem General: capillary refill normal, no cyanosis and no edema Psych Mental Status: mental status grossly normal Course Vital Signs Vital signs: Vital Signs Temperature 36.7 C 09/29/24 20:25 Pulse 80 09/29/24 20:25 Respiratory Rate 15 09/29/24 20:25 Blood Pressure 118/75 09/29/24 20:25 Pulse Oximetry 97 09/29/24 20:25 Temperature 36.7 C 09/29/24 20:25 Temperature Source Oral 09/29/24 20:25 Pulse 80 09/29/24 20:25 Respiratory Rate 15 09/29/24 20:25 Respiratory Effort Normal 09/29/24 20:29 Blood Pressure 118/75 09/29/24 20:25 Blood Pressure Position Sitting 09/29/24 20:25 Pulse Oximetry 97 09/29/24 20:25 Pain Level 8 09/29/24 20:25 Medical Decision Making 53-year-old female who was at work when she was standing and tripped over a bar causing her to fall forward from a standing height. She did not hit her head or loss of consciousness. She is ambulatory at arrival, she has no signs of trauma to the head. She denies any neck or head pain. No chest or abdomen pain, no pain in her legs. She localizes the pain to the right lateral elbow, right mid forearm and right lateral wrist. She has no visible signs of deformities. She is limited range of motion in the wrist and elbow due to pain. She has no tenderness in the hand, she has intact sensation and cap refill in the hand. No tenderness in the proximal humerus or shoulder. She does have some mid thoracic spinous process tenderness. No lower lumbar tenderness. No C-spine tenderness with full range of motion of her C-spine. Given her pain will obtain x-rays of her elbow, forearm, wrist and also a thoracic spine x-ray. X-rays on my read show no acute fractures, turnaround time for V rad is over an hour at this point. Reassessed patient, she is feeling improved, still has tenderness in the elbow and wrist but has better range of motion. No other tenderness elsewhere. Patient does not want to wait for official reads, I will call her if radiology sees anything of concern. Will provide a splint for her wrist for likely wrist sprain wrist contusion and also a sling. She will follow-up with her PCP if not improving and return precautions given. Differential Diagnosis Differential Diagnosis: Fracture, contusion Quality:SDOH Health Related Social Needs: No Data to Display PFSH All Active Problems (Updated 09/29/24 @ 21:22 by Chris Romero MD) Right wrist sprain (Acute) Contusion of arm, right (Acute) Back contusion (Acute) History of multiple myeloma (Acute) SLE (systemic lupus erythematosus) (Chronic ~2014) Generalized anxiety disorder (Chronic) Major depressive disorder, recurrent (Chronic) Ocular migraine (Chronic) Insomnia (Chronic) Sigmoid diverticulosis (Acute) Medical History (Updated 09/29/24 @ 21:22 by Chris Romero MD) Dermatomyositis (~2014) Multiple myeloma (~2014) S/p autologous stem cell transplant Surgical History (Updated 03/26/24 @ 15:38 by Rosemarie Turner) History of colonoscopy (~03/2024) Hx of autologous stem cell transplant S/P carpal tunnel release History of partial hysterectomy (~2012) For uterine fibroids, ovaries remain Family History Mother , 73 Heart disease Hyperlipidemia Stroke Father , 65 Depression Sister No problems noted. Sister No problems noted. Son No problems noted. Son No problems noted. Daughter No problems noted. Maternal Grandfather No problems noted. Maternal Grandmother No problems noted. Paternal Grandfather No problems noted. Paternal Grandmother Heart disease Social History (Updated 02/11/24 @ 11:50 by Natalia Rod NP) Smoking/Tobacco Use Status: Current-Occasional Tobacco Type: cigars Tobacco: How many years used: 7 Quit status: has quit before Second Hand Exposure: No Smoking risk assessment performed?: Yes Alcohol Intake: former Drug use: Never Substance use type: does not use Caregiver/Support person: No Household members: spouse and other Details: Father in law Housing: house Communication Needs: None Do you need help understanding health information?: Never Pets and animals: No Sexually active: Yes Do you think of yourself as: straight/heterosexual Current gender identity: female What is your relationship status?: How often do you talk on the phone with friends or family?: twice per week How often do you get together with friends or relatives?: once per week How often do you attend voodoo or latter day services?: decline to answer Do you belong to any clubs or organized social groups?: yes Panel score (0-1 are the most socially isolated patients): 3 What type of physical activity do you participate in: weight lifting Duration: 60-90 minutes/day Frequency: 5-6 times per week Lynnette/Orthodox: Hinduism Special lynnette needs: No Seatbelt use: always Helmet use: Yes Helmet use: always Drive intox or ride w/intox driver education instructor: No Do you feel safe at home: Yes Do you feel safe in your relationship?: Yes Female Reproductive History Menstrual Menopause type: surgical
--- NOTE | 2024-09-29 21:03 | DI.RAD_ITS ---
Exam(s) XR THORACIC SPINE COMPLETE EXAM: XR THORACIC SPINE COMPLETE CLINICAL HISTORY: pain s/p fall. TECHNIQUE: 2D digital imaging was performed. COMPARISON: No exams were available for comparison FINDINGS: 3 views No evidence of fracture or listhesis nor significant disc space narrowing. No abnormal widening of the paraspinal lines. No significant scoliosis. Bone density normal. No os seous lesions. IMPRESSION: No acute osseous findings in the thoracic vertebrae. Incidentally noted is a right C7 cervical rib. DATA REPOSITORY: RADIATION DOSE DELIVERED:
--- NOTE | 2024-09-29 21:03 | DI.RAD_ITS ---
Exam(s) XR ELBOW RT COMPLETE EXAM: XR ELBOW RT COMPLETE CLINICAL HISTORY: pain s/p fall. TECHNIQUE: 2D digital imaging was performed. COMPARISON: CR,XR XR FOREARM RT from 09/29/2024 FINDINGS: 3 views There is a subtle irregularity of the radial head which is possibly a fracture given that there is a joint effusion with elevation the anterior fat pad. No other osseous findings. No swelling of the olecranon bursa. IMPRESSION: Subtle radial head fracture. Joint effusion-probable her rashes First read by [facility]. Final report called by myself to ER physician 09/30/2024 8:01 a.m. DATA REPOSITORY: RADIATION DOSE DELIVERED:
--- NOTE | 2024-09-29 21:03 | DI.RAD_ITS ---
Exam(s) XR WRIST RT COMPLETE EXAM: XR WRIST RT COMPLETE CLINICAL HISTORY: pain s/p fall. TECHNIQUE: 2D digital imaging was performed. COMPARISON: No exams were available for comparison FINDINGS: 3 views No evidence of fracture or dislocation nor significant ulnar variance. Scaphoid and scapholunate dis tance are normal. No osseous lesions. No radiopaque foreign bodies. No erosions. IMPRESSION: No acute osseous findings in the wrist. DATA REPOSITORY: RADIATION DOSE DELIVERED:
--- NOTE | 2024-09-29 21:03 | DI.RAD_ITS ---
Exam(s) XR FOREARM RT EXAM: XR FOREARM RT CLINICAL HISTORY: pain s/p fall. TECHNIQUE: 2D digital imaging was performed. COMPARISON: No exams were available for comparison FINDINGS: Two views: There is subtle radial head fracture. No other fractures identified in the forearm bones IMPRESSION: Radial head fracture First read by [facility] Final report called by myself to ER physician 09/30/2024 8:01 a.m. DATA REPOSITORY: RADIATION DOSE DELIVERED:
--- NOTE | 2024-09-29 22:10 | DI.VRAD_ITS ---
PROCEDURE INFORMATION: Exam: XR Right Elbow Exam date and time: 09/29/2024 8:59 PM Age: 53 years old Clinical indication: Injury or trauma; Work related; Blunt trauma (contusions or hematomas); Elbow and arm, lower and wrist; Right; Injury date: 09/29/24; Patient HX: Pain S/P fall TECHNIQUE: Imaging protocol: Radiologic exam of the right elbow. Views: 3 or more views. COMPARISON: CR XR FOREARM RT 09/29/2024 8:57 PM FINDINGS: Bones/joints: No acute fracture or dislocation. Soft tissues: Normal. IMPRESSION: No acute findings. Dictated and Authenticated by: Susan Barnhart MD. Ordering:DC Perez MD
--- NOTE | 2024-09-29 22:11 | DI.VRAD_ITS ---
PROCEDURE INFORMATION: Exam: XR Right Forearm Exam date and time: 09/29/2024 8:57 PM Age: 53 years old Clinical indication: Injury or trauma; Work related; Blunt trauma (contusions or hematomas); Elbow and arm, lower and wrist; Right; Injury date: 09/29/24; Patient HX: Pain S/P fall TECHNIQUE: Imaging protocol: Radiologic exam of the right forearm. Views: 2 views. COMPARISON: CR XR WRIST RT COMPLETE 09/29/2024 8:55 PM FINDINGS: Bones/joints: No acute fracture or dislocation. Soft tissues: Normal. IMPRESSION: No acute findings. Dictated and Authenticated by: Susan Barnhart MD. Ordering:DC Perez MD
--- NOTE | 2024-09-29 22:24 | DI.VRAD_ITS ---
PROCEDURE INFORMATION: Exam: XR Right Wrist Exam date and time: 09/29/2024 8:55 PM Age: 53 years old Clinical indication: Injury or trauma; Work related; Blunt trauma (contusions or hematomas); Elbow and arm, lower and wrist; Right; Injury date: 09/29/24; Patient HX: Pain S/P fall TECHNIQUE: Imaging protocol: Radiologic exam of the right wrist. Views: 3 or more views. COMPARISON: No relevant prior studies available. FINDINGS: Bones/joints: No acute fracture or dislocation. Soft tissues: Normal. IMPRESSION: No acute findings. Dictated and Authenticated by: Susan Barnhart MD. Ordering:DC Perez MD
--- NOTE | 2024-09-29 22:26 | DI.VRAD_ITS ---
PROCEDURE INFORMATION: Exam: XR Thoracic Spine Exam date and time: 09/29/2024 8:49 PM Age: 53 years old Clinical indication: Injury or trauma; Work related; Blunt trauma (contusions or hematomas); Injury date: 09/29/24; Patient HX: Pain S/P fall TECHNIQUE: Imaging protocol: Radiologic exam of the thoracic spine. Views: 3 views. COMPARISON: CT THORAX CTA 12/25/2022 7:30 PM FINDINGS: Bones/joints: No acute fracture. Soft tissues: Unremarkable. IMPRESSION: No acute fracture or listhesis. Dictated and Authenticated by: Susan Barnhart MD. Ordering:DC Perez MD
[2024-09-29 22:27] VITALS: BP 122/68; PULSE 79; RESP 16; TEMP 36.7; O2SAT 100
--- NOTE | 2024-09-30 08:20 | W.ED.FU ---
Date of service: 09/30/24 Time of Service: 08:20 Follow Up Plan: I called this patient at home as radiology had over read a right radial head fracture. Patient was wearing a sling. I was in touch with Dr. Kowalski from orthopedics who advised gentle weightbearing as tolerated. I relayed this update to the patient. Of asked health supervisor microfilm duplicating unit Alexandra to have the patient seen in 2 weeks by orthopedics for follow-up. She will benefit from repeat plain films.
== END 2024-09-29 22:28 | disposition home or self-care (01) ==
PROVIDERS: Emergency Provider Emergency Medicine; PCP Nurse Practitioner Family
DX: S20.229A Contusion of unspecified back wall of thorax, initial encounter (principal); S40.021A Contusion of right upper arm, initial encounter; S63.501A Unspecified sprain of right wrist, initial encounter; W01.0XXA Fall on same level from slipping, tripping and stumbling without subsequent striking against object, initial encounter; Y93.01 Activity, walking, marching and hiking; F17.290 Nicotine dependence, other tobacco product, uncomplicated
CPT/HCPCS: 99284; 72072; 73080; 73090; 73110

== ENCOUNTER 2024-10-17 10:44 | Outpatient (CLI) | payer OTHER, SELFPAY ==
--- NOTE | 2024-10-17 09:00 | DI.RAD_ITS ---
Exam(s) XR ELBOW RT COMPLETE EXAM: XR ELBOW RT COMPLETE CLINICAL HISTORY: RIGHT RADIAL HEAD FX. TECHNIQUE: 2D digital imaging was performed. Three views. COMPARISON: CR,XR XR ELBOW RT COMPLETE from 09/29/2024 FINDINGS: Stable alignment of radial head fracture. Some interval healing. Joint effusion remains present. IMPRESSION: Stable alignment of radial head fracture. DATA REPOSITORY: RADIATION DOSE DELIVERED:
== END 2024-10-17 10:45 | disposition home or self-care (01) ==
LOC: DIORS 10:46
PROVIDERS: PCP Nurse Practitioner Family; Referring Provider Nurse Practitioner Family; Visit Provider Physician Assistant
DX: S52.121D Displaced fracture of head of right radius, subsequent encounter for closed fracture with routine healing (principal); X58.XXXD Exposure to other specified factors, subsequent encounter
CPT/HCPCS: 73080

== ENCOUNTER 2024-11-07 10:00 | Outpatient (CLI) | payer OTHER, SELFPAY ==
--- NOTE | 2024-11-07 09:45 | DI.RAD_ITS ---
Exam(s) XR ELBOW RT COMPLETE EXAM: XR ELBOW RT COMPLETE CLINICAL HISTORY: F/U R RADIAL HEAD FX. TECHNIQUE: 2D digital imaging was performed. Three views. COMPARISON: CR XR ELBOW RT COMPLETE from 10/17/2024 FINDINGS: BONES: Continued healing of the radial head fracture. Fracture lines are no longer discrete. No acu te fracture is present. No bony destructive lesion is seen. JOINTS: The elbow is normally aligned. No joint effusion is seen. SOFT TISSUE: Normal. IMPRESSION: Continued healing of radial head fracture. DATA REPOSITORY: RADIATION DOSE DELIVERED:
== END 2024-11-07 10:01 | disposition home or self-care (01) ==
LOC: DIORS 10:01
PROVIDERS: PCP Nurse Practitioner Family; Visit Provider Physician Assistant
DX: S52.121D Displaced fracture of head of right radius, subsequent encounter for closed fracture with routine healing (principal); X58.XXXD Exposure to other specified factors, subsequent encounter
CPT/HCPCS: 73080

== ENCOUNTER 2024-12-17 17:52 | Outpatient (CLI) | payer SELFPAY ==
[2024-12-17 16:24] LABS: Abs Immature Grans 0.01 10^3/uL (0.0-0.06); Absolute Basophil Count 0.04 10^3/uL (0.0-0.2); Absolute Lymphocyte Count 2.52 10^3/uL (1.2-3.4); Absolute Monocyte Count 0.52 10^3/uL (0.1-0.8); Basophils % 0.6 %; Eosinophils % 1.6 %; HCT 39.4 % (36.0-46.0); HGB 13.4 g/dL (11.2-15.7); Immature Grans % 0.2 %; Lymphocytes % 40.1 %; MCH 31.4 pg (27.0-33.0); MCV 92 fL (80-95); Monocytes % 8.3 %; Neutrophils % 49.2 %; Platelet Count 231 10^3/uL (130-400); RBC 4.27 10^6/uL (3.93-5.22); RDW 12.8 % (11.7-14.6); RDW-SD 43.6 fL; WBC 6.29 10^3/uL (4.4-10.8)
[2024-12-17 17:09] LABS: ALT 38 U/L (14-59); AST 18 U/L (15-37); Albumin 3.8 g/dL (3.4-5.0); Alkaline Phosphatase 112 U/L (46-116); BUN 15 mg/dL (7-18); Bilirubin, Total 0.41 mg/dL (0.2-1.0); CREATININE 0.9 mg/dL (0.55-1.02); Calcium 9.1 mg/dL (8.5-10.1); Chloride 107 mmol/L (98-107); Estimated GFR 75.03 (mL/min/1.73m2); Glucose 88 mg/dL (74-106); Potassium 3.8 mmol/L (3.5-5.1); Sodium 144 mmol/L (136-145); TSH (W/Ref FT4) 0.87 uIU/mL (0.36-3.74); Total Protein 6.5 g/dL (6.4-8.2)
[2024-12-19 12:02] LABS: HIV-1/2 Ag & Ab Screen Negative (Negative)
[2024-12-19 12:05] LABS: Hepatitis C Ab w Rflx HCV PCR Negative (Negative)
[2024-12-19 13:20] LABS: HBs Antibody, Quant 9.8 mIU/mL (See Note); Hep B Surface Ab Negative (See Note); Hepatitis B Core Antibody Negative (Negative); Hepatitis B Surface Antigen Negative (Negative)
== END 2024-12-17 17:53 | disposition home or self-care (01) ==
LOC: LBO 18:00
PROVIDERS: PCP Nurse Practitioner Family; Visit Provider Nurse Practitioner Family
DX: Z00.00 Encounter for general adult medical examination without abnormal findings (principal); Z11.4 Encounter for screening for human immunodeficiency virus [HIV]; Z11.59 Encounter for screening for other viral diseases
CPT/HCPCS: 36415; 80053; 86704; 86706; 86803; 87340; 87389; 84443; 85025

== ENCOUNTER 2024-12-22 15:44 | Outpatient (CLI) | payer OTHER, SELFPAY ==
--- NOTE | 2024-12-22 09:08 | DI.RAD_ITS ---
Exam(s) XR ELBOW RT COMPLETE EXAM: XR ELBOW RT COMPLETE h CLINICAL HISTORY: F/U R RADIAL HEAD FX. TECHNIQUE: 2D digital imaging was performed. COMPARISON: CR,XR XR ELBOW RT COMPLETE from 09/29/2024 CR,XR XR FOREARM RT from 09/29/2024 CR XR ELBOW RT COMPLETE from 10/17/2024 CR XR ELBOW RT COMPLETE from 11/07/2024 FINDINGS: 3 views There is now a fracture line visible in the radial head. This is in similar location to previously h ealing radial head fracture site. There appears to be slight incongruity at the articular surface of the radial head. Capitellum appears unremarkable. There does not appear to be an obvious joint eff usion. Also no swelling of the olecranon bursa. Epicondyles appear unremarkable. IMPRESSION: There is a fracture in the radial head at the same site as was previously present (but subsequently h ealed) on images of 09/29/2024 There is slight depression at the radial head fracture site. There is no obvious joint effusion. DATA REPOSITORY: RADIATION DOSE DELIVERED:
== END 2024-12-22 15:45 | disposition home or self-care (01) ==
LOC: DIORS 15:44
PROVIDERS: PCP Nurse Practitioner Family; Visit Provider Student in an Organized Health Care Education/Training Program
DX: S52.121D Displaced fracture of head of right radius, subsequent encounter for closed fracture with routine healing (principal); X58.XXXD Exposure to other specified factors, subsequent encounter
CPT/HCPCS: 73080